=== PATIENT | female | born 1965 | race American Indian/Alaskan Native ===

== ENCOUNTER 2017-03-05 08:57 | Day surgery (SDC) | payer MEDICAID ==
[2017-03-05] MEDS ORDERED: NACL 0.9% 1000 ML 1,000 ML ONE (09:22)
[2017-03-05] MEDS ORDERED: NACL 0.9% 1000 ML 1,000 ML IV SCH (10:00)
--- NOTE | 2017-03-05 10:12 | Short Stay Summary ---
Short Stay Documentation Date of service: 03/05/17 Narrative H&P: 51 year old presents for colonoscopy for evaluation of abdominal pain, change in bowel habit and diarrhea. Incidentally noted symptom: abdominal distention not explained by ultrasound nor CT scan. - History Principal diagnosis: abdominal pain, change in bowel habit, diarrhea H&P: obtained from office Past Medical History: arthritis, COPD (emphtysema, bronchitis, continued smoking ), other (anxiety, depression, schizophrenia) Social history: smoking - Allergies and Medications Current Medications: Allergies No Known Allergies Allergy (Verified 03/05/17 09:23) Home Medications Medication Instructions Recorded Confirmed Last Taken Type ALPRAZolam [Xanax TAB] 03/05/17 Unknown History Albuterol Sulfate [Proventil Hfa] 03/05/17 Unknown History AtorvaSTATin [Lipitor] 20 mg PO QHS 03/05/17 03/05/17 Unknown History Citalopram Hydrobromide 03/05/17 Unknown History [Citalopram HBr] Fluticasone/Salmeterol [Advair 03/05/17 Unknown History 500-50 Diskus] Meloxicam [Meloxicam] 03/05/17 Unknown History Tiotropium [place] [Spiriva] 03/05/17 Unknown History Active Medications Sodium Chloride (Nacl 0.9% 1000 Ml) 1,000 mls @ 50 mls/hr IV DIRECT JON - Physical exam General appearance: no acute distress, well-nourished HEENT: PERRLA, EOMI Lungs: Clear to auscultation Heart: Regular rate, Normal S1, Normal S2 Gastrointestinal: normal Neurological: Normal speech - Hospital course Hospital course: Uneventful colonoscopy. - Disposition Condition at discharge: Good Disposition: DC-01 TO HOME OR SELFCARE - Discharge Diagnoses (1) Abdominal pain Status: Acute (2) Change in bowel habit Status: Acute (3) Diarrhea Status: Acute (4) Internal hemorrhoids Status: Chronic (5) External hemorrhoids Status: Chronic Short Stay Discharge Plan Activity: other (no driving today) Diet: other (may resume usual diet) Additional Instructions: Patient to call for biopsy results if she does not hear from us within 10 days Follow up with: JER LUCAS III, KIMBERLY [Primary Care Provider] - 7 Days
[2017-03-05] MEDS ORDERED: VERSED ONE (10:13)
--- NOTE | 2017-03-05 10:14 | Anesthesia Consultation ---
Anesthesia Consult and Med Hx Date of service: 03/05/17 - Airway Anesthetic Teeth Evaluation: Good ROM Head & Neck: Adequate Mental/Hyoid Distance: Adequate Mallampati Class: Class II Intubation Access Assessment: Probably Good - Pulmonary Exam CTA: Yes - Cardiac Exam Cardiac Exam: RRR - Pre-Operative Health Status ASA Pre-Surgery Classification: ASA2 Proposed Anesthetic Plan: MAC - Pulmonary Hx Smoking: Yes Hx Asthma: Yes SOB: Yes COPD: Yes Hx Sleep Apnea: (HIGH RISK) - Central Nervous System Hx Psychiatric Problems: Yes - Other Systems Hx Cancer: No
--- NOTE | 2017-03-05 10:14 | Anesthesia Day of Surgery ---
Anesthesia Day of Surgery - Day of Surgery Patient Examined: Yes Patient H&P Reviewed: Yes Patient is NPO: Yes
[2017-03-05] MEDS ORDERED: DIPRIVAN 10 MG/ML IV ONE ×2 (10:42→11:17)
[2017-03-05] MEDS ORDERED: AMIDATE IV ONE (10:43)
[2017-03-05] MEDS ORDERED: VERSED IV NR (11:00)
--- NOTE | 2017-03-05 11:18 | Operative Report ---
Operative Report Operative Report: Date of procedure: 03/05/2017 Preprocedure diagnosis: Abdominal pain, change in bowel habit, diarrhea Post procedure diagnosis: Internal and external hemorrhoids Procedure name(s): Colonoscopy and biopsy Surgeon: Saúl Last MD Anesthesia: Monitored anesthesia care EBL: Less than 1-2 mL Procedure: The indications, techniques, potential complications and alternatives , had been discussed in full detail prior to the date of the exam, and once again on the day of the exam. Questions were encouraged and answered, and consent was thereby obtained. The patient was placed in the left lateral decubitus position, and was medicated by anesthesia services. See the anesthesia records for details. The anal sphincter was digitally dilated. Small external hemorrhoids were noted. The tip of a PurePhoto adult videocolonoscope was inserted through the anal sphincter and into the rectal vault. It was then advanced proximally under continuous visualization of the lumen to the cecum without difficulty. The prep was good and landmarks were easily identified. No pathology was seen in the cecum. The appendiceal orifice appeared normal. From the cecum, the instrument was slowly withdrawn with careful circumferential examination of the colonic mucosa. No pathology was found in the ascending colon, hepatic flexure , transverse colon, splenic flexure, descending colon, sigmoid colon or the rectum from the forward view. Random biopsies were obtained from all segments of colon as the instrument was withdrawn to assess for colitis at the microscopic level. There was no significant bleeding from any biopsy site. Retroflexion in the rectum revealed internal hemorrhoids. The instrument was straightened and withdrawn. The procedure was very well tolerated. Postprocedure she was monitored in the recovery area of the GI lab to ensure stability prior to her release. See the outpatient record for details regarding instructions to patient, medications and plans for follow-up. Final diagnosis: 1. Internal and external hemorrhoids 2. Otherwise normal colonoscopy to the cecum, random biopsies obtained from all segments of colon to assess for microscopic colitis Saúl Last M.D. Dictated 03/05/2017 at 11:15 AM
[2017-03-05 11:54] VITALS: BP 126/86
--- NOTE | 2017-03-05 12:31 | Post Anesthesia Evaluation ---
- Post Anesthesia Evaluation Patient Participated: Yes Airway Patent: Yes Stable Respiratory Function: Yes Nausea/Vomiting: No Temp > 96.8F: Yes Pain Manageable: Yes Adequeate Hydration: Yes Anesthesia Complications: No Block Receding Appropriately: Not Applicable Patient on Ventilator: No
[2017-03-05] MEDS ORDERED: WATER FOR IRRIG STERILE IR ONE (13:56)
== END 2017-03-05 08:58 | disposition home or self-care (01) ==
LOC: GIO 08:57
PROVIDERS: ATTEND Internal Medicine Gastroenterology
DX: R19.7 Diarrhea, unspecified (principal); R10.9 Unspecified abdominal pain; K64.4 Residual hemorrhoidal skin tags; K64.8 Other hemorrhoids; J43.9 Emphysema, unspecified; M19.90 Unspecified osteoarthritis, unspecified site; F41.9 Anxiety disorder, unspecified; F32.9 Major depressive disorder, single episode, unspecified; F20.9 Schizophrenia, unspecified; F17.200 Nicotine dependence, unspecified, uncomplicated; Z79.899 Other long term (current) drug therapy
CPT/HCPCS: 45380; 88305; J2250; J2704; J7030

== ENCOUNTER 2018-07-17 09:25 | Day surgery (SDC) | payer MEDICAID ==
[~2018-07-17 09:25] MED LIST: DIPRIVAN 10 MG/ML IV ONE; NACL 0.9% 1000 ML 1,000 ML IV SCH
--- NOTE | 2018-07-17 10:30 | Short Stay Summary ---
Short Stay Documentation Date of service: 07/17/18 Narrative H&P: Ms Turpin is a 53 yo aaf who presents for EGD. Pt with h/o chronic reflux, dysphagia and chronic abdominal pain. H/o COPD, previously on oxygen but off now. quit smoking. Upper gi symptoms mostly unchanged. - History Past Medical History: COPD Social history: no significant social history - Allergies and Medications Current Medications: Allergies No Known Allergies Allergy (Verified 03/05/17 09:23) Home Medications Medication Instructions Recorded Confirmed Last Taken Type ALPRAZolam [Xanax TAB] 1 tab PO BID 03/05/17 07/17/18 07/16/18 History Albuterol Sulfate [Proventil Hfa] 2 puff INHALATION PRN PRN 03/05/17 07/17/18 07/16/18 History Citalopram Hydrobromide 40 mg PO QHS 03/05/17 07/17/18 07/16/18 History [Citalopram HBr] Advair 100-50 Diskus 1 puff 07/17/18 07/16/18 History Banophen 50 mg PO DAILY 07/17/18 07/17/18 07/16/18 History Gabapentin 300 mg PO TID 07/17/18 07/17/18 07/16/18 History Hyoscyamine Rapdis 0.125 mg 0.125 mg PO 4XD 07/17/18 07/17/18 07/16/18 History Omeprazole 40 mg PO DAILY 07/17/18 07/17/18 07/16/18 History Active Medications Sodium Chloride (Nacl 0.9% 1000 Ml) 1,000 mls @ 50 mls/hr IV DIRECT JON Last Admin: 07/17/18 10:09 Dose: 50 mls/hr Documented by: - Physical exam General appearance: no acute distress Lungs: Clear to auscultation Heart: Regular rate, Normal S1, Normal S2 Gastrointestinal: normal Extremities: No edema - Brief post op/procedure progress note Date of procedure: 07/17/18 Pre-op diagnosis: Dysphagia, abdominal pain Post-op diagnosis: same (normal upper endoscopy) Procedure: EGD with biopsies Anesthesia: MAC Findings: Normal upper endoscopy 1. Esophagus biopsied to r/o EoE 2. Stomach biopsied to r/o H. pylori Surgeon: FLORENCIA LOJA Estimated blood loss: minimal Pathology: list (Jar A - gastric biopsies, r/o H pylori; Jar B - esophageal biopsies, r/o EoE) Specimen disposition: to lab Condition: stable - Disposition Condition at discharge: Good Disposition: DC- TO HOME OR SELFCARE Short Stay Discharge Plan Follow up with: JER LUCAS III, KIMBERLY [Primary Care Provider] - 7 Days
--- NOTE | 2018-07-17 10:34 | Operative Report ---
Operative Report Operative Report: Esophagogastroduodenoscopy Procedure Note with Biopsies Date of procedure: 07/17/2018 Endoscopist: Man Nava Pre-op diagnosis: Abdominal pain, Dysphagia Post-op diagnosis: Normal upper endoscopy Anesthesia: MAC Complications: No immediate complications Estimated blood loss: minimal Procedure: After consent was obtained, the patient was placed in the left lateral decubitus position. The fujinon endoscope was inserted into the patient's mouth under direct vision, and advanced into the 2nd portion of the duodenum without difficulty. The patient tolerated the procedure well. The views of the mucosa were good. Patient's vital signs were monitored continuously throughout the procedure. Findings: The esophagus appeared normal (normal exam for dysphagia symptoms); Biopsies were obtained from the esophagus to rule out eosinophilic esophagitis. The stomach appeared normal. Biopsies were obtained to rule out H pylori. The duodenum appeared normal. Impression: 1. Normal upper endoscopy. Biopsies obtained from the esophagus to rule out EoE. Biopsies were obtained from the stomach to rule out H pylori. Recommendations: -follow-up pathology -continue current medications -follow-up in GI clinic as previously scheduled
[2018-07-17 11:15] VITALS: BP 118/85
== END 2018-07-17 09:26 | disposition home or self-care (01) ==
LOC: GIO 09:25
PROVIDERS: ATTEND Internal Medicine Gastroenterology
DX: K21.0 Gastro-esophageal reflux disease with esophagitis (principal); M06.9 Rheumatoid arthritis, unspecified; J43.9 Emphysema, unspecified; E78.00 Pure hypercholesterolemia, unspecified; G47.30 Sleep apnea, unspecified; M17.0 Bilateral primary osteoarthritis of knee; F31.9 Bipolar disorder, unspecified; F41.9 Anxiety disorder, unspecified; Z72.89 Other problems related to lifestyle; Z79.899 Other long term (current) drug therapy; Z87.891 Personal history of nicotine dependence
CPT/HCPCS: 43239; 88305; 88342; J2704; J7030

== ENCOUNTER 2019-01-08 10:16 | Day surgery (SDC) | payer MEDICAID ==
[~2019-01-08 10:16] MED LIST changes: -DIPRIVAN 10 MG/ML IV ONE; -NACL 0.9% 1000 ML 1,000 ML IV SCH; +SODIUM CHLORIDE 0.9% 1000 ML 1,000 ML IV SCH
[2019-01-08 11:29] VITALS: BP 121/82
--- NOTE | 2019-01-08 11:37 | Anesthesia Consultation ---
Anesthesia Consult and Med Hx Date of service: 01/08/19 - Airway Anesthetic Teeth Evaluation: Good ROM Head & Neck: Adequate Mental/Hyoid Distance: Adequate - Pulmonary Hx Smoking: Yes Hx Asthma: Yes SOB: Yes COPD: Yes Hx Sleep Apnea: (HIGH RISK) - Central Nervous System Hx Psychiatric Problems: Yes - Other Systems Hx Alcohol Use: Yes Hx Cancer: No
== END 2019-01-08 10:17 | disposition home or self-care (01) ==
LOC: GIO 10:16
PROVIDERS: ATTEND Internal Medicine Gastroenterology
DX: Z12.11 Encounter for screening for malignant neoplasm of colon (principal); F41.9 Anxiety disorder, unspecified; E78.00 Pure hypercholesterolemia, unspecified; J43.9 Emphysema, unspecified; G47.30 Sleep apnea, unspecified; K21.9 Gastro-esophageal reflux disease without esophagitis; M19.90 Unspecified osteoarthritis, unspecified site; F31.9 Bipolar disorder, unspecified; Z53.8 Procedure and treatment not carried out for other reasons; Z87.891 Personal history of nicotine dependence; Z79.899 Other long term (current) drug therapy; Z72.89 Other problems related to lifestyle

== ENCOUNTER 2019-01-08 11:59 | Emergency (ER) | payer MEDICAID ==
[2019-01-08] MEDS ORDERED: IPRATROPIUM/ALBUTEROL SULFATE 3 ML AMPUL.NEB IH ONE (12:45)
[2019-01-08] MEDS ORDERED: dexAMETHasone 20 MG/5 ML VIAL IM ONE (12:45)
--- NOTE | 2019-01-08 12:47 | Event Note ---
ED Screening Note Date of service: 01/08/19 Time: 12:44 ED Screening Note: 53 y/o female comes in for difficulties in breathing. Started this morning. This initial assessment/diagnostic orders/clinical plan/treatment(s) is/are subject to change based on patients health status, clinical progression and re- assessment by fellow clinical providers in the ED. Further treatment and workup at subsequent clinical providers discretion. Patient/guardian urged not to elope from the ED as their condition may be serious if not clinically assessed and managed. Initial orders include:
--- NOTE | 2019-01-08 13:24 | XRay Report ---
CHEST 2 VIEWS INDICATION / CLINICAL INFORMATION: SOB. COMPARISON: None available. FINDINGS: SUPPORT DEVICES: None. HEART / MEDIASTINUM: The heart size and pulmonary vasculature are normal. LUNGS / PLEURA: No significant pulmonary or pleural abnormality. No pneumothorax. ADDITIONAL FINDINGS: No significant additional findings. IMPRESSION: No acute findings. Signer Name: Reza Almanza MD Signed: 01/08/2019 1:20 PM Workstation Name: [id number]
[2019-01-08] MEDS ORDERED: LORazepam 2 MG/ML VIAL IV ONE (13:42)
[2019-01-08] MEDS ORDERED: LORazepam 2 MG/ML VIAL IM ONE (13:46)
--- NOTE | 2019-01-08 14:51 | Emergency Department Report ---
ED General Adult HPI - General Chief complaint: Dyspnea/Respdistress Stated complaint: LUNG TIGHTNESS Time Seen by Provider: 01/08/19 12:43 Source: patient Mode of arrival: Ambulatory Limitations: No Limitations - History of Present Illness Initial comments: This is a 53-year-old female with an apparent anxiety disorder. She is chronically taking Xanax among other medications which were stopped she states in anticipation of a colonoscopy. She went to the GI lab today and started complaining of shortness of breath. She has history of asthma. She was given steroids and a neb prior to my arrival. She was placed in an examination area. After bed placement, she began to complain of recurrent left greater than right upper quadrant pain. He states and her shelter advocate or family member affirms that she has had this problem multiple times before. She's had previous workup and CT examination which revealed nothing acute. Apparently these episodes are associated with bilateral crampy pain affecting the upper quadrants of the abdomen. She does not complain of chest pain or pleuritic pain. She is not coughing nor short of breath. Her initial sat was 96% on room air. -: Sudden Quality: aching Improves with: none Worsens with: none Associated Symptoms: denies other symptoms - Related Data Home Medications Medication Instructions Recorded Confirmed Last Taken ALPRAZolam [Xanax TAB] 1 tab PO BID 03/05/17 07/17/18 07/16/18 Albuterol Sulfate [Proventil Hfa] 2 puff INHALATION PRN PRN 03/05/17 07/17/18 07/16/18 Citalopram Hydrobromide 40 mg PO QHS 03/05/17 07/17/18 07/16/18 [Citalopram HBr] Advair 100-50 Diskus 1 puff 07/17/18 07/16/18 Banophen 50 mg PO DAILY 07/17/18 07/17/18 07/16/18 Gabapentin 300 mg PO TID 07/17/18 07/17/18 07/16/18 Hyoscyamine Rapdis 0.125 mg 0.125 mg PO 4XD 07/17/18 07/17/18 07/16/18 Omeprazole 40 mg PO DAILY 07/17/18 07/17/18 07/16/18 Allergies Allergy/AdvReac Type Severity Reaction Status Date / Time No Known Allergies Allergy Verified 03/05/17 09:23 ED Review of Systems ROS: Stated complaint: LUNG TIGHTNESS Other details as noted in HPI Constitutional: denies: chills, fever Eyes: denies: eye pain, eye discharge, vision change ENT: denies: ear pain, throat pain Respiratory: shortness of breath, wheezing. denies: cough Cardiovascular: denies: chest pain, palpitations Endocrine: no symptoms reported Gastrointestinal: abdominal pain. denies: nausea, diarrhea Genitourinary: denies: urgency, dysuria, discharge Musculoskeletal: denies: back pain, joint swelling, arthralgia Skin: denies: rash, lesions Neurological: denies: headache, weakness, paresthesias Psychiatric: denies: anxiety, depression Hematological/Lymphatic: denies: easy bleeding, easy bruising ED Past Medical Hx - Past Medical History Previous Medical History?: No Hx Hypertension: No Hx CVA: No Hx Heart Attack/AMI: No Hx Congestive Heart Failure: No Hx Diabetes: No Hx Deep Vein Thrombosis: No Hx Pulmonary Embolism: No Hx GERD: Yes Hx Liver Disease: No Hx Renal Disease: No Hx of Cancer: No Hx Sickle Cell Disease: No Hx Arthritis: Yes Hx Headaches / Migraines: No Hx Seizures: No Hx Kidney Stones: No Hx Psychiatric Treatment: No Hx Asthma: Yes Hx COPD: Yes Hx Tuberculosis: No Hx Dementia: No Hx HIV: No - Surgical History Past Surgical History?: No Hx Coronary Stent: No Hx Open Heart Surgery: No Hx Pacemaker: No Hx Internal Defibrillator: No Hx Cholecystectomy: No Hx Appendectomy: No Hx Breast Surgery: No - Social History Smoking Status: Former Smoker Substance Use Type: None - Medications Home Medications: Home Medications Medication Instructions Recorded Confirmed Last Taken Type ALPRAZolam [Xanax TAB] 1 tab PO BID 03/05/17 07/17/18 07/16/18 History Albuterol Sulfate [Proventil Hfa] 2 puff INHALATION PRN PRN 03/05/17 07/17/18 07/16/18 History Citalopram Hydrobromide 40 mg PO QHS 03/05/17 07/17/18 07/16/18 History [Citalopram HBr] Advair 100-50 Diskus 1 puff 07/17/18 07/16/18 History Banophen 50 mg PO DAILY 07/17/18 07/17/18 07/16/18 History Gabapentin 300 mg PO TID 07/17/18 07/17/18 07/16/18 History Hyoscyamine Rapdis 0.125 mg 0.125 mg PO 4XD 07/17/18 07/17/18 07/16/18 History Omeprazole 40 mg PO DAILY 07/17/18 07/17/18 07/16/18 History ED Physical Exam - General Limitations: No Limitations General appearance: alert, anxious, other (anxious with apparent hyper ventilation) - Head Head exam: Present: atraumatic, normocephalic - Eye Eye exam: Present: normal appearance, PERRL, EOMI. Absent: scleral icterus - ENT ENT exam: Present: mucous membranes moist - Neck Neck exam: Present: normal inspection. Absent: tenderness, meningismus - Respiratory Respiratory exam: Present: normal lung sounds bilaterally, other (moving air quite well but tachypnea). Absent: respiratory distress - Cardiovascular Cardiovascular Exam: Present: regular rate, normal rhythm. Absent: systolic murmur, diastolic murmur, rubs, gallop - GI/Abdominal GI/Abdominal exam: Present: soft, normal bowel sounds. Absent: distended, tenderness, guarding, rebound, rigid - Extremities Exam Extremities exam: Present: normal inspection, normal capillary refill. Absent: pedal edema, joint swelling, calf tenderness - Back Exam Back exam: Present: normal inspection - Neurological Exam Neurological exam: Present: alert, oriented X3, CN II-XII intact. Absent: motor sensory deficit - Psychiatric Psychiatric exam: Present: normal affect, anxious - Skin Skin exam: Present: warm, dry, intact, normal color. Absent: rash ED Course Vital Signs 01/08/19 01/08/19 01/08/19 12:26 13:15 14:48 Temperature 98.3 F Pulse Rate 86 Pulse Rate [ 89 Anterior Bilateral Throughout] Respiratory 16 20 Rate Respiratory 18 Rate [Anterior Bilateral Throughout] Blood Pressure 116/77 O2 Sat by Pulse 96 Oximetry - Reevaluation(s) Reevaluation #1: Patient states that she is ready to go home. Chest is clear. She is asymptomatic. 01/08/19 16:23 ED Medical Decision Making - Lab Data Result diagrams: 01/08/19 14:32 01/08/19 14:32 Laboratory Results - last 24 hr 01/08/19 01/08/19 01/08/19 14:32 14:32 14:32 WBC 11.6 H RBC 5.71 H Hgb 15.6 H Hct 47.7 H MCV 84 MCH 27 L MCHC 33 RDW 14.8 Plt Count 378 Lymph % (Auto) 17.1 Jenkins % (Auto) 3.6 Eos % (Auto) 0.1 Baso % (Auto) 1.8 Lymph # 2.0 Jenkins # 0.4 Eos # 0.0 Baso # 0.2 H Seg Neutrophils % 77.4 H Seg Neutrophils # 9.0 H PT 12.8 INR 0.99 APTT 32.1 D-Dimer 193.90 Sodium 134 L Potassium 3.2 L Chloride 94.3 L Carbon Dioxide 19 L Anion Gap 24 BUN 6 L Creatinine 0.8 Estimated GFR > 60 BUN/Creatinine Ratio 8 Glucose 116 H Calcium 9.8 Magnesium 2.20 Total Bilirubin 0.40 Direct Bilirubin < 0.2 Indirect Bilirubin 0.2 AST 20 ALT 15 Alkaline Phosphatase 98 Total Creatine Kinase 198 H CK-MB (CK-2) 2.5 CK-MB (CK-2) Rel Index 1.2 NT-Pro-B Natriuret Pep 160.9 Total Protein 8.9 H Albumin 4.8 Albumin/Globulin Ratio 1.2 Lipase 01/08/19 14:32 WBC RBC Hgb Hct MCV MCH MCHC RDW Plt Count Lymph % (Auto) Jenkins % (Auto) Eos % (Auto) Baso % (Auto) Lymph # Jenkins # Eos # Baso # Seg Neutrophils % Seg Neutrophils # PT INR APTT D-Dimer Sodium Potassium Chloride Carbon Dioxide Anion Gap BUN Creatinine Estimated GFR BUN/Creatinine Ratio Glucose Calcium Magnesium Total Bilirubin Direct Bilirubin Indirect Bilirubin AST ALT Alkaline Phosphatase Total Creatine Kinase CK-MB (CK-2) CK-MB (CK-2) Rel Index NT-Pro-B Natriuret Pep Total Protein Albumin Albumin/Globulin Ratio Lipase 15 - EKG Data -: EKG Interpreted by Me EKG shows normal: sinus rhythm, axis, intervals, QRS complexes, ST-T waves Rate: normal - EKG Data Interpretation: other (no evidence of acute ischemia) - Radiology Data Radiology results: report reviewed (process), image reviewed Critical care attestation.: If time is entered above; I have spent that time in minutes in the direct care of this critically ill patient, excluding procedure time. ED Disposition Clinical Impression: Acute anxiety, Hypokalemia, ECF to ICF shifts Exacerbation of asthma Qualifiers: Asthma severity: moderate Asthma persistence: unspecified Qualified Code(s): J45.901 - Unspecified asthma with (acute) exacerbation Disposition: TO HOME OR SELFCARE Is pt being admited?: No Does the pt Need Aspirin: No Condition: Stable Instructions: Asthma (ED), Anxiety (ED) Additional Instructions: Return as needed any acute change or problem. Follow-up with your usual care providers. Referrals: usual, primary care and GI [Other] - 3-5 Days Time of Disposition: 16:24
[2019-01-08 15:09] LABS: Basophils # (Auto) 0.2 K/mm3 (0.0-0.1); Basophils % (Auto) 1.8 % (0.0-1.8); Eosinophils % (Auto) 0.1 % (0.0-4.3); Hematocrit 47.7 % (30.3-42.9); Hemoglobin 15.6 gm/dl (10.1-14.3); Lymphocytes % (Auto) 17.1 % (13.4-35.0); Mean Corpuscular HGB Conc 33 % (30-34); Mean Corpuscular Volume 84 fl (79-97); Monocytes # (Auto) 0.4 K/mm3 (0.0-0.8); Monocytes % (Auto) 3.6 % (0.0-7.3); Red Blood Count 5.71 M/mm3 (3.65-5.03); Red Cell Distribution Width 14.8 % (13.2-15.2)
[2019-01-08 15:18] LABS: Platelet Count 378 K/mm3 (140-440)
[2019-01-08 15:21] LABS: INR 0.99 (0.87-1.13)
[2019-01-08 15:22] LABS: Partial Thromboplastin Time 32.1 Sec. (24.2-36.6)
[2019-01-08 15:26] LABS: Creatine Kinase MB 2.5 ng/mL (0.0-4.0)
[2019-01-08 15:27] LABS: Alanine Aminotransferase 15 units/L (7-56); Albumin 4.8 g/dL (3.9-5); BUN/Creatinine Ratio 8; Blood Urea Nitrogen 6 mg/dL (7-17); Calcium 9.8 mg/dL (8.4-10.2); Hemolysis Index 7
[2019-01-08 15:42] LABS: Bilirubin,Direct < 0.2 mg/dL (0-0.2)
[2019-01-08] MEDS ORDERED: POTASSIUM CHLORIDE ER 20 MEQ TAB PO ONE (15:57)
[2019-01-08 17:21] VITALS: BP 110/79
== END 2019-01-08 17:24 | disposition home or self-care (01) ==
LOC: ED 11:59
DX: J45.901 Unspecified asthma with (acute) exacerbation (principal); F41.9 Anxiety disorder, unspecified; E87.6 Hypokalemia; K21.9 Gastro-esophageal reflux disease without esophagitis; Z79.899 Other long term (current) drug therapy; Z87.891 Personal history of nicotine dependence
CPT/HCPCS: 36415; 71046; 80048; 80076; 82550; 82553; 83690; 83735; 83880; 85025; 85379; 85610; 85730; 93005; 93010; 94640; 96372; 96374; 99284; J1100; J2060; 94644